=== PATIENT | female | born 1975 | race Caucasian/White ===

== ENCOUNTER 2018-02-09 11:35 | Outpatient (CLI) | payer OTHER ==
[~2018-02-09 11:35] MED LIST: CIPRO500 MG PO; TRAM1TAB98 PO
== END 2018-02-09 17:00 | disposition home or self-care (01) ==
LOC: MAMO-SONO 11:35
DX: Z12.31 Encounter for screening mammogram for malignant neoplasm of breast (principal)

== ENCOUNTER 2018-10-18 13:22 | Outpatient (CLI) | payer OTHER | END 2018-10-18 13:32 | disposition home or self-care (01) | LOC: RAD 13:22 | DX: M25.522 Pain in left elbow (principal) ==